=== PATIENT | female | born 1945 | race Hispanic/Latino ===

== ENCOUNTER → 2018-08-25 | Outpatient (CLI) | payer OTHER | END | disposition home or self-care (01) | LOC: RAH 08:23 | PROVIDERS: ATTEND Internal Medicine | DX: Z12.31 Encounter for screening mammogram for malignant neoplasm of breast (principal) | CPT/HCPCS: 77067 ==

== ENCOUNTER → 2024-09-20 | Outpatient (CLI) | payer OTHER ==
--- NOTE | 2024-09-20 20:47 | HMCIMG ---
EXAM: MR Brain Without IV Contrast CLINICAL HISTORY: Headache. TECHNIQUE: Multiplanar multi-sequence MRI of the brain. CONTRAST: No. COMPARISON: None provided. FINDINGS: Mild diffuse age-related cerebral and cerebellar atrophy is evident by dilated lateral ventricles, prominent cisterns, and sulcal spaces. No abnormal parenchymal signal is present. No evidence of acute cortical infarction, hemorrhage, mass or mass effect. The ventricular system is normal in size, shape, and contour. No hydrocephalus. No abnormal extra-axial fluid collection is present. The marrow signal within the skull base and calvarium is intact. The paranasal sinuses and mastoid air cells are clear. Bilateral intraocular lens implants in situ. IMPRESSION: No acute intracranial abnormality or mass. Mild diffuse age-related cerebral and cerebellar atrophy. /[place]
== END | disposition home or self-care (01) ==
LOC: RAH 15:06
PROVIDERS: ATTEND Internal Medicine
DX: G31.1 Senile degeneration of brain, not elsewhere classified (principal); R51.9 Headache, unspecified
CPT/HCPCS: 70551